=== PATIENT | male | born 1975 | race Caucasian/White ===

== ENCOUNTER 2021-10-16 17:00 | Emergency (ER) | payer OTHER, SELFPAY ==
[2021-10-16 17:14] VITALS: BP 140/84; PULSE 76; RESP 18; TEMP 36.3; O2SAT 98
--- NOTE | 2021-10-16 17:21 | ED.EAR ---
HPI - Ear Problem General Chief complaint: Ear Stated complaint: lt earache Time Seen by Provider: 10/16/21 17:18 Source: patient Mode of arrival: ambulatory Limitations: no limitations History of Present Illness HPI Narrative: Mr. Luna is a 46-year-old male patient presenting to the clinic today with complaints of left ear pain x6 days. He reports that his ear is muffled and he is having some pain. He denies any otorrhea, fever, or chills. Related Data Allergies Allergy/AdvReac Type Severity Reaction Status Date / Time No Known Allergies Allergy Verified 10/16/21 17:24 Review of Systems Review of Systems: Pertinent positives per HPI. Patient denies any fever, chills, rash, headache, visual changes, dizziness, cough, shortness of breath, chest pain, palpitations, nausea, vomiting, diarrhea, constipation, abdominal pain, or any urinary issues. PMFSH Comments At the time of my signature, I reviewed and agree with the nursing past medical, surgical, social, and family history. There is no relevant family history pertinent to the patient complaint. Exam Narrative: General: Well-developed, well nourished, in no apparent distress Head: Normocephalic, atraumatic Eyes: Pupils equally round and reactive to light bilaterally, EOM intact, sclera and conjunctive clear, no discharge, lids normal Ears: Right TM intact and clear, left TM mild bulging, scar, opaque/dull, ear canals clear, no drainage, grossly hearing normal. Nose: Nares patent, no discharge, no inflammation, no sinus tenderness. Mouth: Oral pharynx without lesions or masses, good dentition, MMM. Neck: Supple, trachea midline, no enlargement of anterior or posterior cervical nodes, no thyroid masses or goiter palpable. Cardio: Regular rate and rhythm, s1 and s2 normal, no murmur appreciated. Resp: Clear to auscultation bilaterally, no rhonchi, rales, wheezing or rubs Course Course Emergency Course: Portions of this record may have been created with voice recognition software. Level of Care: Express Care Visit Vital Signs Vital signs: Vital Signs Temperature 36.3 C L 10/16/21 17:14 Pulse Rate 76 10/16/21 17:14 Respiratory Rate 18 10/16/21 17:14 Blood Pressure 140/84 10/16/21 17:14 Pulse Oximetry 98 10/16/21 17:14 Oxygen Delivery Room Air 10/16/21 17:14 Temperature 36.3 C L 10/16/21 17:14 Pulse Rate 76 10/16/21 17:14 Respiratory Rate 18 10/16/21 17:14 Blood Pressure 140/84 10/16/21 17:14 Pulse Oximetry 98 10/16/21 17:14 Oxygen Delivery Room Air 10/16/21 17:14 Vital signs reviewed Medical Decision Making MDM Narrative Medical decision making narrative: At the time of visit patient is resting comfortably on the exam table. He has what appears to be left-sided eustachian tube dysfunction. I will going give a prescription for some prednisone to help with the pressure and dry up any drainage. Supportive measures were discussed with patient he voiced understanding of discharge instructions and agrees to the treatment plan. Differential Diagnosis Differential Diagnosis: Otitis media, otitis externa, eustachian tube dysfunction, otalgia, M?ni?re's Vital Signs Vital Signs: Vital Signs Temperature 36.3 C L 10/16/21 17:14 Pulse Rate 76 10/16/21 17:14 Respiratory Rate 18 10/16/21 17:14 Blood Pressure 140/84 10/16/21 17:14 Pulse Oximetry 98 10/16/21 17:14 Oxygen Delivery Room Air 10/16/21 17:14 Temperature 36.3 C L 10/16/21 17:14 Pulse Rate 76 10/16/21 17:14 Respiratory Rate 18 10/16/21 17:14 Blood Pressure 140/84 10/16/21 17:14 Pulse Oximetry 98 10/16/21 17:14 Oxygen Delivery Room Air 10/16/21 17:14 Discharge Plan Discharge Clinical Impression: ETD (eustachian tube dysfunction) Patient Disposition: Home, Self-Care Condition: Stable Instructions: Earache (ED) Additional Instructions: Take prescription medications only as prescribed Tylenol/motrin a
== END 2021-10-16 17:32 | disposition home or self-care (01) ==
PROVIDERS: Emergency Provider Nurse Practitioner Family
DX: H69.82 Other specified disorders of Eustachian tube, left ear (principal)
CPT/HCPCS: 99203; G0463

== ENCOUNTER 2021-12-19 13:52 | Emergency (ER) | payer OTHER, SELFPAY ==
[2021-12-19 14:04] VITALS: BP 144/80; PULSE 95; RESP 20; TEMP 36.9; O2SAT 97
--- NOTE | 2021-12-19 14:32 | ED.URI ---
HPI - URI/Sore Throat General Chief Complaint: Upper Respiratory Infection Stated Complaint: Sinus,Cough Time Seen by Provider: 12/19/21 14:33 History of Present Illness HPI Narrative: Jame Luna is a 46 yo male with no PMH who comes to [facility] with complaints of fever, sinus congestion, pain on this right side and mild cough that been going on for about 7 days he developed a fever about a day ago and today's fever was 102 he took some Tylenol this morning and is sweaty in the exam room. He states he is not getting any better has tried most [id number] medications have been speaking with the pharmacist at [facility] Had 2 doses of COVID-vaccine +1 booster Related Data Allergies Allergy/AdvReac Type Severity Reaction Status Date / Time No Known Allergies Allergy Verified 12/19/21 14:30 Review of Systems Review of Systems: CONSTITUTIONAL: Has fever, chills, sweats. EYES: Denies visual changes, redness, discharge. ENT: Denies rhinorrhea, has congestion, sore throat, otalgia. Facial pain CARDIOVASCULAR: Denies chest pain, palpitations, edema. RESPIRATORY: Denies dyspnea, wheezing, has cough GASTROINTESTINAL: Denies abdominal pain, nausea, vomiting, diarrhea. GENITOURINARY: Denies dysuria, hematuria, abnormal discharge SKIN: Denies rash or itching. NEUROLOGIC: Denies numbness, or focal weakness. PSYCHIATRIC: Denies anxiety or depression. PMFSH Past Medical History Medical History No acute medical problems Social History Social History (Updated 12/19/21 @ 14:40 by Heide Patel CNP) Smoking status: Never smoker Alcohol intake: current Comments At time of signature, I agree with nursing past medical, surgical, social and family history. There is no relevant family history pertinent to the presenting complaint. Exam Narrative: GENERAL: This is a well-nourished, well-developed patient, in mild distress. HEAD: normocephalic, atraumatic. EYES: . Sclera clear/white. Vision is grossly intact. EARS: External ears normal, mild erythema canals clear and without drainage, TMs normal without perforation. Hearing grossly intact. NOSE: External nose normal with nasal discharge, nares without redness, has rhinorrhea. THROAT: Mucous membranes moist, posterior pharynx erythema with no edema NECK: Neck supple, mild submandibular lymph node tenderness CARDIOVASCULAR: Regular rate and rhythm without murmurs, gallops, or rubs. RESPIRATORY: Clear to auscultation. Breath sounds equal bilaterally. Mild upper wheezes, rales, or rhonchi. GASTROINTESTINAL: Not done SKIN: warm, intact with no suspicious lesions or rash, good texture and turgor. Perspiring NEURO: awake, alert, and oriented to person, place and time. There were no obvious focal neurologic abnormalities. Steady gait EXTREMITIES: Normal range of motion. BACK: Nontender without deformity Course Course Emergency Course: Patient here with complaints of sinus pressure sore throat cough fever that has gotten worse over the last week Patient started on Augmentin prednisone 40 mg x 5 days, Tessalon Perlmiky Use of Tylenol and ibuprofen alternating for fever and pain Level of Care: Express Care Visit Vital Signs Vital signs: Vital Signs Temperature 98.5 F 12/19/21 14:04 Pulse Rate 95 12/19/21 14:04 Respiratory Rate 20 12/19/21 14:04 Blood Pressure 144/80 H 12/19/21 14:04 Pulse Oximetry 97 12/19/21 14:04 Oxygen Delivery Room Air 12/19/21 14:04 Temperature 98.5 F 12/19/21 14:04 Pulse Rate 95 12/19/21 14:04 Respiratory Rate 20 12/19/21 14:04 Blood Pressure 144/80 H 12/19/21 14:04 Pulse Oximetry 97 12/19/21 14:04 Oxygen Delivery Room Air 12/19/21 14:04 MDM - URI/Sore Throat Differential Diagnosis Differential diagnosis: Likely upper respiratory infection, sinusitis, viral infection, bronchitis, pharyngitis and other Lab Data Labs: Lab Results 12/19/21 Range/U
== END 2021-12-19 14:49 | disposition home or self-care (01) ==
PROVIDERS: Emergency Provider Nurse Practitioner
DX: J01.90 Acute sinusitis, unspecified (principal); Z20.822 Contact with and (suspected) exposure to COVID-19
CPT/HCPCS: 87426; 99213; C9803; G0463

== ENCOUNTER 2022-01-25 13:12 | Emergency (ER) | payer OTHER, SELFPAY ==
[2022-01-25 13:15] VITALS: BP 130/74; PULSE 83; RESP 18; TEMP 36.3; O2SAT 98
--- NOTE | 2022-01-25 13:15 | ED.URI ---
HPI - URI/Sore Throat General Chief Complaint: Upper Respiratory Infection Stated Complaint: runny nose,sinus pressure Time Seen by Provider: 01/25/22 13:15 Source: patient Mode of arrival: ambulatory Limitations: no limitations History of Present Illness HPI Narrative: Mr. Luna is a 46-year-old male patient presenting to the clinic today with complaints of runny nose and sinus pressure 4 to 6 weeks. He reports he was seen back at the end of November and was given prescriptions for prednisone, Augmentin, and Tessalon Perles at that time he reports he finished this medicine however he did not really feel any better. He has been trying [id number] medications for the last few weeks and has not had any relief. He was seen prior to the initial episode for eustachian tube dysfunction. States he is going on a trip to [place] next week and would like to feel better before his trip. MD elicited complaint: rhinorrhea, nasal congestion and sinus pain Related Data Allergies Allergy/AdvReac Type Severity Reaction Status Date / Time No Known Allergies Allergy Verified 01/25/22 13:15 Review of Systems Review of Systems: Pertinent positives per HPI. Patient denies any fever, chills, rash, visual changes, dizziness, sore throat, shortness of breath, chest pain, palpitations, nausea, vomiting, diarrhea, constipation, abdominal pain, or any urinary issues. [facility] Past Medical History Medical History No acute medical problems Social History Social History Smoking status: Never smoker Alcohol intake: current Comments At the time of my signature, I reviewed and agree with the nursing past medical, surgical, social, and family history. There is no relevant family history pertinent to the patient complaint. Exam Narrative: General: Well-developed, well nourished, in no apparent distress Head: Normocephalic, atraumatic Eyes: Pupils equally round and reactive to light bilaterally, EOM intact, sclera and conjunctive clear, no discharge, lids normal Ears: TMs intact and dull, ear canals clear, no drainage, grossly hearing normal. Nose: Nares patent, clear nasal discharge, moderate inflammation, right ethmoid sinus tenderness. Mouth: Oral pharynx without lesions or masses, good dentition, MMM. Neck: Supple, trachea midline, no enlargement of anterior or posterior cervical nodes, no thyroid masses or goiter palpable. Cardio: Regular rate and rhythm, s1 and s2 normal, no murmur appreciated. Resp: Clear to auscultation bilaterally, no rhonchi, rales, wheezing or rubs Course Course Emergency Course: Portions of this record may have been created with voice recognition software. Level of Care: Express Care Visit Vital Signs Vital signs: Vital Signs Temperature 36.3 C L 01/25/22 13:15 Pulse Rate 83 01/25/22 13:15 Respiratory Rate 18 01/25/22 13:15 Blood Pressure 130/74 01/25/22 13:15 Pulse Oximetry 98 01/25/22 13:15 Oxygen Delivery Room Air 01/25/22 13:15 Temperature 36.3 C L 01/25/22 13:15 Pulse Rate 83 01/25/22 13:15 Respiratory Rate 18 01/25/22 13:15 Blood Pressure 130/74 01/25/22 13:15 Pulse Oximetry 98 01/25/22 13:15 Oxygen Delivery Room Air 01/25/22 13:15 Vital signs reviewed MDM - URI/Sore Throat MDM Narrative Medical decision making narrative: At the time of visit patient was resting comfortably on the exam table. Differential Diagnosis Differential diagnosis: Likely upper respiratory infection, otitis media, sinusitis, viral infection, bronchitis, influenza, pharyngitis and other (COVID) Discharge Plan Discharge Clinical Impression: Acute bacterial rhinosinusitis Patient Disposition: Home, Self-Care Condition: Stable Instructions: Antibiotic Form, Rhinosinusitis (ED) Additional Instructions: Take doxycycline as prescribed Take predniso
== END 2022-01-25 13:34 | disposition home or self-care (01) ==
PROVIDERS: Emergency Provider Nurse Practitioner Family
DX: J01.90 Acute sinusitis, unspecified (principal)
CPT/HCPCS: 99213; G0463